=== PATIENT | male | born 1950 | race Caucasian/White ===

== ENCOUNTER 2024-09-07 13:42 | Outpatient (CLI) | payer MEDICARE, OTHER ==
[~2024-09-07 13:42] MED LIST: Magnevist 469MG/ML 20 ML VIAL ONE
== END 2024-09-07 13:43 | disposition home or self-care (01) ==
LOC: CSHMRI 13:42
PROVIDERS: ATTEND Radiology Radiation Oncology
DX: C61 Malignant neoplasm of prostate (principal); N40.2 Nodular prostate without lower urinary tract symptoms
CPT/HCPCS: 72197; 82565